=== PATIENT | male | born 1975 | race Caucasian/White ===

== ENCOUNTER 2022-09-17 14:24 | Outpatient (CLI) | payer BC, SELFPAY ==
[2022-09-17 15:45] LABS: Albumin* 4.8 g/dL (3.3-5.0)
[2022-09-17 15:46] LABS: Chloride* 100 mmol/L (96-114); Potassium* 4.3 mmol/L (3.6-5.1); Sodium* 138 mmol/L (135-149)
[2022-09-17 15:48] LABS: Aspartate Amino Transferase* 31 U/L (12-35); Bilirubin Total* 0.6 mg/dL (0.1-1.5); Blood Urea Nitrogen* 19 mg/dL (5-24); Carbon Dioxide* 28 mmol/L (20-32); Cholesterol* 219 mg/dL (90-199); Estimated Glomerular Filt Rate 93 ml/min; Total Protein* 7.4 g/dL (6.0-8.3)
[2022-09-17 15:49] LABS: Alanine Aminotransferase* 40 U/L (4-50); Alkaline Phosphatase* 65 U/L (40-150); Calcium* 9.8 mg/dL (8.4-10.6); Glucose* 109 mg/dL (60-115); HDL Cholesterol* 44 mg/dL (>=40); LDL Cholesterol Calculated 148 mg/dL (<100); Triglycerides* 135 mg/dL (40-149)
== END 2022-09-17 14:25 | disposition home or self-care (01) ==
PROVIDERS: PCP Physician Assistant Medical; Visit Provider Physician Assistant Medical
DX: I10 Essential (primary) hypertension (principal); Z13.6 Encounter for screening for cardiovascular disorders
CPT/HCPCS: 80053; 80061

== ENCOUNTER 2023-11-03 07:39 | Outpatient (CLI) | payer BC, SELFPAY | END 2023-11-03 07:40 | disposition home or self-care (01) | LOC: NFLDREF 11-05 06:42 | PROVIDERS: PCP Physician Assistant Medical; Referring Provider Physician Assistant Medical; Visit Provider Physician Assistant Medical | DX: I10 Essential (primary) hypertension (principal) | CPT/HCPCS: 80053; 80061 ==

== ENCOUNTER 2023-12-15 07:47 | Outpatient (CLI) | payer BC, SELFPAY ==
--- NOTE | 2023-12-15 09:03 | W.ANESCHARGE ---
Anesthesia Charges Start Date/Time Anesthesia Start Date: 12/15/23 Anesthesia Start Time: 08:40 Stop Date/Time Anesthesia Stop Date: 12/15/23 Anesthesia Stop Time: 09:03
--- NOTE | 2023-12-15 09:22 | W.ANESCHARGE ---
Anesthesia Charges Start Date/Time Anesthesia Start Date: 12/15/23 Anesthesia Start Time: 08:40 Stop Date/Time Anesthesia Stop Date: 12/15/23 Anesthesia Stop Time: 09:03
== END 2023-12-15 07:48 | disposition home or self-care (01) ==
LOC: OP CLINIC 07:47
PROVIDERS: PCP Physician Assistant Medical; Visit Provider Internal Medicine
DX: Z12.11 Encounter for screening for malignant neoplasm of colon (principal); K57.30 Diverticulosis of large intestine without perforation or abscess without bleeding
CPT/HCPCS: 00811; 00812; 45378; J2704

== ENCOUNTER 2024-12-03 08:11 | Outpatient (CLI) | payer BC, SELFPAY | END 2024-12-03 08:12 | disposition home or self-care (01) | LOC: NFLDREF 12-05 04:11 | PROVIDERS: PCP Physician Assistant Medical; Referring Provider Physician Assistant Medical; Visit Provider Physician Assistant Medical | DX: I10 Essential (primary) hypertension (principal); Z12.5 Encounter for screening for malignant neoplasm of prostate; Z13.6 Encounter for screening for cardiovascular disorders; Z13.29 Encounter for screening for other suspected endocrine disorder | CPT/HCPCS: 80053; 80061; 84443; G0103 ==